=== PATIENT | female | born 1985 | race Hispanic/Latino ===

== ENCOUNTER 2016-05-30 07:48 | Emergency (ER) | payer OTHER ==
[~2016-05-30] VITALS: Ht 157.5 cm; Wt 61.2 kg
[~2016-05-30 07:48] MED LIST: ANTIVERT25 MG PO; AUGMENTIN 875-1 EACH PO; PEPCID40 MG PO
[2016-05-30 07:51] VITALS: BP 138/83
--- NOTE | 2016-05-30 08:00 | ED INFLUENZA/URI COMPLAINT ---
History of Present Illness General Chief Complaint: Sore Throat, Dental Pain Stated Complaint: COUGH,SORE THOAT Source: patient, old records Exam Limitations: no limitations Vital Signs & Intake/Output Vital Signs & Intake/Output Vital Signs Date Time Temp Pulse Resp B/P Pulse O2 O2 Flow FiO2 Ox Delivery Rate 05/30 0751 98.1 82 18 138/83 98 Room Air Allergies Coded Allergies: NO KNOWN ALLERGIES (10/03/10) Reconcile Medications Azithromycin (Zithromax) 250 MG TABLET 1 DP PO AD URI 2 the first day followed by 1 for days 2-5 Robitussin AC (Guaifenesin-Codeine Syrup) 200 MG-20 MG/10 ML LIQUID 10 ML PO Q6HR PRN COUGH Triage Note: 31 Y/O FEMALE C/O URI SYMPTOMS SINCE FRIDAY NIGHT. C/O COUGH, CONGESTION AND BODY ACHES. AFEBRILE. Triage Nurses Notes Reviewed? yes Onset: Gradual Duration: week(s): (1), constant Timing: recent history Severity: mild, moderate Severity Numbers: 5 Prior Episodes/Possible Cause: occassional episodes No Modifying Factors: none Associated Symptoms: cough, muscle aches, nasal congestion : No Patient currently breastfeeds: No HPI: This is a 31-year-old female with no medical history presents emergency room complaining of a nonproductive cough, sore throat congestion and intermittent dizziness for the past 6 days. She has not sought care for the symptoms until today she has not taken anything for her symptoms. She reports multiple sick contacts at home similar symptoms. No shortness of breath chest pain abdominal pain nausea vomiting or diarrhea. She denies fevers or chills. There are no modifying factors or associated symptoms otherwise she does not smoke (WINTER HWANG) Past History Travel History Traveled to [place] past 21 day No Medical History Any Pertinent Medical History? see below for history Neurological: NONE EENT: NONE Cardiovascular: NONE Respiratory: asthma Gastrointestinal: NONE Hepatic: NONE Renal: NONE Musculoskeletal: NONE Psychiatric: anxiety, depression Endocrine: NONE Blood Disorders: SICKLE CELL CARRIER Cancer(s): NONE COMMERCIAL ACCOUNT MANAGER/Reproductive: NONE Surgical History Surgical History: NONE Psychosocial History What is your primary language Hebrew Tobacco Use: Never used Family History Hx Contributory? No (WINTER HWANG) Review of Systems Review of Systems Constitutional: Reports: no symptoms, see HPI. All Other Systems: Reviewed and Negative Comments Review of systems: See HPI, All other systems negative. Constitutional, chills no fever, no malaise no weight loss HEENT: sore throat congestion, no ear pain Cardiovascular: No chest pain , no palpitation , no orthopnea Skin, no jaundice no rashes, no change in skin Respiratory: No dyspnea cough no sputum GI: No nausea no vomiting, no diarrhea, no bloating/constipation : No dysuria No hematuria, Muscle skeletal: No joint pain, no joint swelling, no back pain, no neck pain Neurologic: No numbness no confusion, no headache Psych: No stress Heme/endocrine: No bruising no bleeding Immunology: No lymphadenopathy (WINTER HWANG) Physical Exam Physical Exam General Appearance: well developed/nourished, alert, awake Ears, Nose, Throat: moist mucous membrane, nasal congestion Comments: Well-developed well-nourished patient in no apparent distress. Head/Face: Atraumatic, no maxillary/frontal sinus tenderness, no facial swelling Eyes: PERRL, EOMI, no conjunctival injection. No nystagmus Ear:External auditory canal and Tympanic membranes clear, no erythema, no FB. Nose: atraumatic., congestion, rhinorrhea No bleeding, no septal hematoma Throat: Moist mucous membranes.Pharynx normal. No pharyngeal erythema/exudate seen. No stridor/drooling or assymetry. No swelling or edema. Neck: Supple, no lymphadenopathy, FROM Back: FROM, Nontender Cardiovascular: Regular rate and rhythms no murmurs rubs or gallops, Respiratory: Chest nontender.There were no bony deformities, no asymmetry. No respiratory distress. Patient speaking in full complete sentences. Breath sounds clear to auscultation bilaterally: NO W/R/R Extremities: full range of motion Neuro: Alert and oriented x3 Skin: Warm & dry;No appreciable rash on exposed skin Psych: Mood affect normal, normal memory normal judgment. Core Measures Severe Sepsis Present: No Septic Shock Present: No (WINTER HWANG) Progress Differential Diagnosis: influenza, otitis, pneumonia, pharyngitis, sinusitis, bronchitis, uri, vertigo, labrinthitis Plan of Care: Discussed the patient need for supportive care hydration prescription for Robitussin with codeine, Z-Ed provided. I discussed the medications that they will receive with the patient. I gave them signs and symptoms that could indicate an adverse reaction. I have advised them to limit their activities until they can see how they respond to the medication. Initial ED EKG: none (WINTER HWANG) Departure Departure Time of Disposition: 804 Disposition: HOME OR SELF CARE Condition: Stable Clinical Impression Primary Impression: URI (upper respiratory infection) Referrals: TREY HANNA MD Additional Instructions: ZPAK DIRECTED, ROBITUSSIN WITH CODEINE FOR COUGH- USE CAUTION THIS WILL MAKE YOU DROWSY. NO DRIVING OR DRINKING ALCOHOL WHILE TAKING. THESE WERE SENT TO [facility] Departure Forms: Customer Survey General Discharge Information Prescriptions: Current Visit Scripts Azithromycin (Zithromax) 1 DP PO AD #6 TAB 2 the first day followed by 1 for days 2-5 Robitussin AC (Guaifenesin-Codeine Syrup) 10 ML PO Q6HR PRN COUGH #200 ML (WINTER HWANG) PA/REHAB CARE ASSISTANT Co-Sign Statement Statement: ED Attending supervision documentation- [] I saw and evaluated the patient. I have also reviewed all the pertinent lab results and diagnostic results. I agree with the findings and the plan of care as documented in the PA's/REHAB CARE ASSISTANT's documentation. [X] I have reviewed the ED Record and agree with the PA's/REHAB CARE ASSISTANT's documentation. [] Additions or exceptions (if any) to the PAs/REHAB CARE ASSISTANT's note and plan are summarized below: [] (BRYAN JAMESON DO
[2016-05-30] MEDS ORDERED: ZITHROMAX250 M2 PO (08:07)
[2016-05-30] MEDS ORDERED: GUAIFENESIN-COD10 ML PO (08:07)
== END 2016-05-30 08:10 ==
LOC: ERH 07:48
DX: J06.9 Acute upper respiratory infection, unspecified (principal)

== ENCOUNTER → 2017-10-29 | Day surgery (SDC) | payer OTHER ==
[~2017-10-29] VITALS: Ht 157.5 cm; Wt 61.2 kg
[~2017-10-29] MED LIST changes: +GUAIFENESIN-COD10 ML PO; +PROAIR HFA8.5 GM INH; +PROVENTIL HFA6.7 GM INH; +ZITHROMAX250 M2 PO
--- NOTE | 2017-11-06 20:41 | Operative Report ---
Operative/Inv Procedure Report Surgery Date: 10/29/17 Name of Procedure: D&C, IUD removal and reinsertion of new IUD with hysteroscopy Pre-Operative Diagnosis: Impacted IUD Post-Operative Diagnosis: Same Estimated Blood Loss: scant Surgeon/Cardiopulmonary Specialist: Francisco Reynoso MD Anesthesia: moderate sedation Operative/Procedure Note Note: The patient was brought to the operating room and placed on the OR table in the dorsal supine position. She was given adequate sedation and repositioned in the modified dorsal lithotomy and prepped and draped in the usual sterile fashion. A weighted speculum was inserted into the vagina with the help of a [place] retractor and single-tooth tenaculum was attached to the anterior lip of the cervix. The cervix was injected with 1% lidocaine with epinephrine to have cc in each quadrant. The cervix was dilated to accommodate the hysteroscope. The hysteroscope was placed and the IUD was easily visualized. It was malpositioned 90 and the hysteroscope was removed. A polyp forcep was placed into the uterus and the IUD was removed intact and sent to pathology. At this point a light R IUD was placed into the uterus using the apparatus provided from the company. The strings were cut instruments removed hemostasis verified patient was then awakened and sent to recovery in good condition. All needle, sponge, and instrument counts were correct at the end of the procedure 2
== END ==
LOC: STS 03:24
DX: T83.39XA Other mechanical complication of intrauterine contraceptive device, initial encounter (principal); K29.70 Gastritis, unspecified, without bleeding; D57.3 Sickle-cell trait
CPT/HCPCS: 81025; J0131; J2250